=== PATIENT | male | born 1960 | race Caucasian/White ===

== ENCOUNTER 2019-11-14 11:56 | Outpatient (CLI) | payer MEDICARE, MEDICAID, SELFPAY ==
--- NOTE | 2019-11-14 | XR_ITS ---
WS: [id number] LUMBAR SPINE: 5 VIEWS TECHNIQUE: AP, lateral, and L5-S1 spot. Lateral views in neutral, flexion and extension. HISTORY: SCIATICA RIGHT SIDE COMPARISON: 03/03/2015 Very mild LEFT convex curvature of the lumbar spine is similar to the prior study. Straightening of t he normal lumbar lordosis. L4 retrolisthesis by 2.8 mm without instability. Mild disc space narrowing at L5-S1. Additional disc space narrowing and desiccation at T11-12. SI joints are symmetric bilaterally. No soft tissue abnormalities. XR/XR lumbar spine min 4V [id number] IMPRESSION: 1. Minimal degenerative LEFT convex curvature of the lumbar spine and straight ening of the normal lordosis. 2. Minimal retrolisthesis of L4 with no instability. 3. Mild degenerative disc disease at T11-12 and L5-S1.
== END 2019-11-14 11:57 | disposition home or self-care (01) ==
LOC: RADOUTREAD 12:17
PROVIDERS: Family Provider Family Medicine; PCP Family Medicine; Visit Provider Family Medicine
DX: Z01.89 Encounter for other specified special examinations (principal)

== ENCOUNTER 2019-12-03 09:05 | Outpatient (CLI) | payer MEDICARE, MEDICAID, SELFPAY ==
--- NOTE | 2019-12-03 09:14 | MR_ITS ---
WS: [id number] MRI LUMBAR SPINE NONCONTRAST TECHNIQUE: Sagittal T1, T2 and STIR imaging. Axial T1 and T2 imaging. CLINICAL INFORMATION: R SIDE SCIATICA COMPARISON: None. FINDINGS: Mild lumbar curve. No acute compression. Disc bulging with central protrusions worse at L1-2, L2-3, a nd L5-S1. Endplate Schmorl's nodes L3-4. No acute appearing compression fractures. L1-L2: Central disc osteophyte disc herniation with impingement subarticular recess bilaterally and m ild central canal stenosis. Mild facet arthropathy. Mild left and no significant right foraminal narr owing. L2-L3: Tiny shallow central disc protrusion with slight effacement of ventral thecal sac. Spinal diana l and foramen are patent. Mild facet arthropathy. L3-L4: Mild annular bulging with slight effacement of ventral thecal sac. Mild to moderate facet arth ropathy. Spinal canal and foramen are patent. L4-L5: Mild annular bulging with slight effacement of ventral thecal sac and narrowing of the subarti cular recess bilaterally. Moderate facet arthropathy. Spinal canal and foramen are patent. L5-S1: Small shallow central protrusion with slight effacement of ventral thecal sac. Moderate facet arthropathy. Moderate right and mild left foraminal narrowing. Contact of the exiting right L5 nerve root. Mild central canal stenosis in the cervical spine on the education teacher imaging at C3-C4. This can be further evaluated with cervical spine MRI. A few shallow protrusions in the thoracic spine seen on the education teacher imaging. MR/MR lumbar spine wo con* [id number] IMPRESSION: 1. Mild lumbar curve. No acute compression. 2. Central disc osteophyte disc herniation L1-2 with mild central canal stenos is and narrowing of the subarticular recess bilaterally. Mild left foraminal na rrowing at this level. 3. Right eccentric disc osteophyte complex L5-S1 with contact of the exiting r ight L5 nerve root and moderate right foraminal narrowing. Recommend correlatio n for right L5 nerve root symptoms. Moderate facet arthropathy this level. 4. Tiny central protrusions L2-3 and L3-4 without significant spinal canal sal rowing. 5. Mild central canal stenosis in cervical spine seen on the education teacher imaging at C3-C4. This can be further evaluated with cervical spine MRI.
== END 2019-12-03 09:06 | disposition home or self-care (01) ==
LOC: RADWPI 09:13
PROVIDERS: Family Provider Family Medicine; PCP Family Medicine; Visit Provider Family Medicine
DX: M54.31 Sciatica, right side (principal); M51.26 Other intervertebral disc displacement, lumbar region; M25.78 Osteophyte, vertebrae
CPT/HCPCS: 72148

== ENCOUNTER 2019-12-18 10:36 | Outpatient (CLI) | payer MEDICARE, MEDICAID, SELFPAY ==
--- NOTE | 2019-12-18 10:50 | MR_ITS ---
WS: [id number] MRI CERVICAL SPINE NONCONTRAST TECHNIQUE: Sagittal T1, T2 and STIR imaging. Axial T2, gradient, and fiesta imaging. CLINICAL INFORMATION: CENTRAL STENOSIS OF SPINAL CANAL COMPARISON: None. FINDINGS: Straightening of the normal cervical lordosis. Small amount of T2 signal abnormality in the cervical cord at C3-C4 with moderate central canal stenosis. C2-C3: Disc osteophyte complex with endplate ridging. Mild bilateral foraminal narrowing. Spinal diana l is patent. C3-C4: Disc osteophyte complex with indentation on the cervical cord. Moderate central canal stenosis . Severe right and moderate left bony foraminal narrowing. Mild facet arthropathy. C4-C5: Mild disc osteophyte complex with endplate ridging. Mild central canal stenosis. Severe right and moderate left bony foraminal narrowing. Advanced right facet arthropathy. C5-C6: Disc osteophyte complex with endplate ridging. Mild central canal stenosis. Moderate left and mild right bony foraminal narrowing. Mild facet arthropathy. C6-C7: Disc osteophyte complex with endplate ridging. Mild right greater than left bony foraminal sal rowing. Spinal canal is patent. C7-T1: Mild disc bulging and osteophytic ridging. Mild left and no significant right foraminal narrow ing. Spinal canal is patent.. Visualized brain stem structures: Normal. Prevertebral soft tissues: Normal. MR/MR cervical spin wo con* [id number] IMPRESSION: 1. Straightening of the normal cervical lordosis. 2. Disc osteophyte complex C3-C4 with moderate central canal stenosis and slig ht indentation on cervical cord. Small amount of chronic appearing signal abnor mality in the cord at this level. 3. Mild central canal stenosis C4-C5 and C5-C6. 4. Multilevel bony foraminal narrowing severe at right C3-C4 and right C4-C5, 5. Moderate to severe asymmetric facet arthropathy right C4-C5.
== END 2019-12-18 10:37 | disposition home or self-care (01) ==
LOC: RADWPI 10:40
PROVIDERS: Family Provider Family Medicine; PCP Family Medicine; Visit Provider Family Medicine
DX: M48.02 Spinal stenosis, cervical region (principal); M25.78 Osteophyte, vertebrae; M47.812 Spondylosis without myelopathy or radiculopathy, cervical region
CPT/HCPCS: 72141

== ENCOUNTER 2020-01-15 14:06 | Outpatient (CLI) | payer MEDICARE, MEDICAID, SELFPAY ==
--- NOTE | 2020-01-15 14:30 | CT_ITS ---
WS: [id number] CT CERVICAL SPINE TECHNIQUE: Noncontrast CT of the cervical spine with coronal and sagittal reformatted images. CLINICAL INFORMATION: Neck pain COMPARISON: MRI December 18, 2019 DLP: 1802.[address] scans at [facility] use at least one of these dose optimization techniques: automat ed exposure control; mA and/or kV adjustment per patient size (includes targeted exams where dose is matched to clinical indication); or iterative reconstruction. FINDINGS: Straightening of the normal cervical lordosis. Moderate spondylitic changes. Alignment is unchanged s freddy the prior MRI. C2-C3: Disc osteophyte complex with endplate ridging. Mild to moderate left foraminal narrowing C3-C4: Disc osteophyte complex with indentation on the cervical cord. Moderate central canal stenosis . Severe right and moderate left bony foraminal narrowing. Moderate to advanced right facet arthropat hy. C4-C5: Mild disc osteophyte complex with endplate ridging. Mild central canal stenosis. Severe ri ght and mild to moderate left bony foraminal narrowing. Advanced right facet arthropathy. C5-C6: Disc osteophyte complex with endplate ridging. Mild central canal stenosis. Moderate left and mild right bony foraminal narrowing. Moderate left facet arthropathy. C6-C7: Disc osteophyte complex with endplate ridging. Mild right greater than left bony foraminal sal rowing. Spinal canal is patent. C7-T1: Mild disc bulging and osteophytic ridging. Foramen are patent. Spinal canal is patent. CT/CT cervical spin wo con* [id number] IMPRESSION: 1. Moderate spondylitic changes with straightening of the normal cervical lord osis. 2. Disc osteophyte complex C3-C4 with moderate central canal stenosis and inde ntation right ventral cervical cord. This appears unchanged from the prior MRI. 3. Mild central canal stenosis C4-C5 and C5-C6 due to disc osteophyte complexe s. 4. Multilevel bony foraminal narrowing more severe at right C3-C4, right C4-C5 , and left C5-C6. 5. Asymmetric advanced facet arthropathy right C3-C4 and C4-C5, worse at right C4-C5.
--- NOTE | 2020-01-15 14:45 | XR_ITS ---
WS: [id number] CERVICAL SPINE FLEXION EXTENSION TECHNIQUE: 3 views of the cervical spine: lateral neutral, flexion and extension views. CLINICAL INFORMATION: Neck pain COMPARISON: None. FINDINGS: Mild spondylitic changes. Slight anterolisthesis C4 on C5, C5 on C6 and C6 on C7 in neutral position measuring 2 to 3 mm. No instability on flexion-extension. Posterior elements are normal. No other significant findings. XR/XR cervical spine fl/ex [id number] IMPRESSION: No instability on flexion-extension.
== END 2020-01-15 14:07 | disposition home or self-care (01) ==
LOC: RADWPI 14:09
PROVIDERS: Family Provider Family Medicine; PCP Family Medicine; Visit Provider Licensed Practical Nurse
DX: M54.2 Cervicalgia (principal); M47.892 Other spondylosis, cervical region; M25.78 Osteophyte, vertebrae; M48.02 Spinal stenosis, cervical region; M47.812 Spondylosis without myelopathy or radiculopathy, cervical region
CPT/HCPCS: 72040; 72125

== ENCOUNTER → 2020-01-20 14:04 | Outpatient (BNVA) | payer MEDICARE, MEDICAID, SELFPAY | PROVIDERS: Family Provider Family Medicine; PCP Family Medicine; Visit Provider Specialist | DX: G56.23 Lesion of ulnar nerve, bilateral upper limbs (principal); F17.210 Nicotine dependence, cigarettes, uncomplicated | CPT/HCPCS: 95910 ==

== ENCOUNTER → 2020-02-04 14:03 | Outpatient (BNVA) | payer MEDICARE, MEDICAID, SELFPAY | PROVIDERS: Family Provider Family Medicine; PCP Family Medicine; Referring Provider Licensed Practical Nurse; Visit Provider Anesthesiology Pain Medicine | DX: M51.17 Intervertebral disc disorders with radiculopathy, lumbosacral region (principal); M48.02 Spinal stenosis, cervical region; G56.23 Lesion of ulnar nerve, bilateral upper limbs; G99.2 Myelopathy in diseases classified elsewhere; F17.210 Nicotine dependence, cigarettes, uncomplicated | CPT/HCPCS: 99204; 99205 ==

== ENCOUNTER → 2020-02-12 13:10 | Outpatient (BNVA) | payer MEDICARE, MEDICAID, SELFPAY | PROVIDERS: Family Provider Family Medicine; PCP Family Medicine; Visit Provider Anesthesiology Pain Medicine | DX: M47.816 Spondylosis without myelopathy or radiculopathy, lumbar region (principal); M48.062 Spinal stenosis, lumbar region with neurogenic claudication; F17.210 Nicotine dependence, cigarettes, uncomplicated; Z79.891 Long term (current) use of opiate analgesic | CPT/HCPCS: 64493; 64494; 64495; J2001; J3490 ==

== ENCOUNTER 2020-02-20 09:38 | Outpatient (RCR) | payer MEDICARE, MEDICAID, SELFPAY | END 2020-03-03 23:59 | disposition home or self-care (01) | LOC: SPT 09:38 | PROVIDERS: PCP Family Medicine; Referring Provider Licensed Practical Nurse; Visit Provider Licensed Practical Nurse | DX: M48.062 Spinal stenosis, lumbar region with neurogenic claudication (principal); M51.17 Intervertebral disc disorders with radiculopathy, lumbosacral region | CPT/HCPCS: 97110; 97161 ==

== ENCOUNTER 2020-11-18 10:02 | Outpatient (CLI) | payer MEDICARE, MEDICAID, SELFPAY ==
--- NOTE | 2020-11-18 10:13 | CT_ITS ---
WS: [id number] LDCT LUNG CANCER SCREENING TECHNIQUE: Noncontrast CT of the chest with coronal and sagittal reformatted images. CLINICAL INFORMATION: NICOTINE DEPENDENCE,CIGARETTES COMPARISON: None. DLP: 62.5 mGy.cm DIvol: 1.[address] scans at [facility] use at least one of these dose optimization techniques: automat ed exposure control; mA and/or kV adjustment per patient size (includes targeted exams where dose is matched to clinical indication); or iterative reconstruction. FINDINGS: 3 mm noncalcified nodule in the right upper lobe anteriorly. No other suspicious pulmonary opacities. No mediastinal or hilar lymphadenopathy. No axillary lymphadenopathy. Adrenal glands are normal. Norm al GE junction. No acute pulmonary infiltrates. No pleural fluid. CT/CT lung screening [id number] IMPRESSION: LUNG-RADS: 2-Benign Appearance or Behavior FOLLOW UP: 12 Month: Continue annual screening with LDCT
== END 2020-11-18 10:03 | disposition home or self-care (01) ==
LOC: RAD 10:08
PROVIDERS: PCP Family Medicine; Visit Provider Family Medicine
DX: Z12.2 Encounter for screening for malignant neoplasm of respiratory organs (principal); F17.210 Nicotine dependence, cigarettes, uncomplicated; R91.1 Solitary pulmonary nodule
CPT/HCPCS: 71271

== ENCOUNTER 2021-07-15 14:33 | Outpatient (CLI) | payer MEDICARE, MEDICAID, SELFPAY ==
[2021-07-15 14:40] VITALS: BP 167/80; PULSE 53; RESP 18; TEMP 36.3; O2SAT 97; BMI 30.9
[2021-07-15 15:13] VITALS: BP 127/75; PULSE 80; RESP 18; TEMP 36.3; O2SAT 97
[2021-07-15 16:08] VITALS: BP 136/79; PULSE 64; RESP 18; TEMP 36.3; O2SAT 95
== END 2021-07-15 14:34 | disposition home or self-care (01) ==
LOC: OPS 14:35
PROVIDERS: PCP Family Medicine; Visit Provider Family Medicine
DX: U07.1 COVID-19 (principal)
CPT/HCPCS: 96365

== ENCOUNTER 2021-12-17 10:16 | Outpatient (CLI) | payer MEDICARE, MEDICAID, SELFPAY ==
--- NOTE | 2021-12-17 10:30 | CT_ITS ---
WS: [id number] LDCT LUNG CANCER SCREENING TECHNIQUE: Noncontrast CT of the chest with coronal and sagittal reformatted images. CLINICAL INFORMATION: HX OF TOBACCO USE COMPARISON: November 18, 2020 DLP: 86.69 mGy.cm DIvol: Mean CTDIvol: 1.60 (mGy) All CT scans at [facility] use at least one of these dose optimization techniques: automat ed exposure control; mA and/or kV adjustment per patient size (includes targeted exams where dose is matched to clinical indication); or iterative reconstruction. FINDINGS: Stable 3 mm noncalcified nodule RIGHT upper lobe anteriorly. Small nodule LEFT lower lobe superior se gment near the fissure measuring 5 mm is better seen today and is stable. No other suspicious pulmona ry opacities. No acute pulmonary infiltrates. Normal caliber thoracic aorta. No mediastinal or hilar lymphadenopathy. No axillary lymphadenopathy. Mild coronary calcification. Adrenal glands are normal. Normal GE junction. Mild thoracic curve. Mild spondylitic changes thoracic spine. CT/CT lung screening [id number] IMPRESSION: LUNG-RADS: 2-Benign Appearance or Behavior FOLLOW UP: 12 Month: Continue annual screening with LDCT
== END 2021-12-17 10:17 | disposition home or self-care (01) ==
LOC: RAD 10:23
PROVIDERS: PCP Family Medicine; Visit Provider Family Medicine
DX: Z13.83 Encounter for screening for respiratory disorder NEC (principal); F17.200 Nicotine dependence, unspecified, uncomplicated
CPT/HCPCS: 71271

== ENCOUNTER 2023-01-03 09:28 | Outpatient (CLI) | payer OTHER, MEDICAID, SELFPAY ==
--- NOTE | 2023-01-03 09:36 | CT_ITS ---
WS: [id number] LDCT LUNG CANCER SCREENING HISTORY: NICOTINE dependence, CIGARETTES TECHNIQUE: Axial imaging performed from the apices to 1 cm below the costophrenic angles. Coronal and sagittal reformats are submitted with axial MIP series. All CT scans at use at least one of these dose optimization techniques: automated exposure control; mA and/or kV adjustment per patient size (includes targeted exams where dose is matched to clinical indication); or iterativ e reconstruction. DLP: 91.59 mGy.cm DIvol: Mean CTDIvol: 2.00 (mGy) COMPARISON: 12/17/2021, 11/18/2020 Diagnostic quality: Satisfactory Lungs: Paraseptal emphysema. No change in the 5 mm nodule anterior RIGHT upper lobe. Superior segment LEFT lower lobe 5 mm nodule reidentified. No increase in size. No new nodules are identified. No pul monary mass or endobronchial lesion. Heart: Normal size heart with no pericardial effusion.. Other findings: Very mild atherosclerosis aorta. No mediastinal or hilar adenopathy. No adrenal mass. Mild thoracic spondylosis. CT/CT lung screening [id number] IMPRESSION: LUNG-RADS: 2-Benign Appearance or Behavior FOLLOW UP: 12 Month: Continue annual screening with LDCT OTHER FINDINGS (S MODIFIER): None.
== END 2023-01-03 09:29 | disposition home or self-care (01) ==
LOC: RAD 09:30
PROVIDERS: PCP Family Medicine; Visit Provider Family Medicine
DX: Z12.2 Encounter for screening for malignant neoplasm of respiratory organs (principal); F17.210 Nicotine dependence, cigarettes, uncomplicated
CPT/HCPCS: 71271

== ENCOUNTER 2024-05-07 09:59 | Outpatient (CLI) | payer MEDICAID, MEDICARE, SELFPAY ==
--- NOTE | 2024-05-07 10:07 | CT_ITS ---
WS: [id number] LDCT LUNG CANCER SCREENING TECHNIQUE: Noncontrast CT of the chest with coronal and sagittal reformatted images. CLINICAL INFORMATION: NICOTINE DEPENDENCE,CIGARETTES COMPARISON: CT 01/03/2023 DLP: 85.61 mGy.cm DIvol: Mean CTDIvol: 1.80 (mGy) All CT scans at [facility] use at least one of these dose optimization techniques: automat ed exposure control; mA and/or kV adjustment per patient size (includes targeted exams where dose is matched to clinical indication); or iterative reconstruction. FINDINGS: Chronic paraseptal emphysematous changes. Stable 5 mm nodule anterior RIGHT upper lobe. Additional 5 mm nodule superior segment LEFT lower lobe has resolved. No new suspicious pulmonary parenchymal opac ities. Normal caliber thoracic aorta. No mediastinal or hilar lymphadenopathy. No axillary lymphadenopathy. Adrenal glands are normal. Normal GE junction. Mild thoracic curve with mild spondylitic changes. Mil d thoracic kyphosis. CT/CT lung screening [id number] IMPRESSION: LUNG-RADS: 2-Benign Appearance or Behavior FOLLOW UP: 12 Month: Continue annual screening with LDCT
== END 2024-05-07 10:00 | disposition home or self-care (01) ==
PROVIDERS: PCP Family Medicine; Visit Provider Family Medicine
DX: Z12.2 Encounter for screening for malignant neoplasm of respiratory organs (principal); F17.210 Nicotine dependence, cigarettes, uncomplicated; J43.8 Other emphysema; R91.1 Solitary pulmonary nodule
CPT/HCPCS: 71271

== ENCOUNTER 2025-06-26 14:43 | Outpatient (CLI) | payer MEDICARE, MEDICAID, SELFPAY ==
--- NOTE | 2025-06-26 14:50 | CT_ITS ---
WS: [id number] LDCT LUNG CANCER SCREENING TECHNIQUE: Noncontrast CT of the chest with coronal and sagittal reformatted images. CLINICAL INFORMATION: NICOTINE DEPENDENCE,CIGARETTES COMPARISON: CT 05/07/2024 DLP: 69.72 mGy.cm DIvol: Mean CTDIvol: 1.30 (mGy) All CT scans at [facility] use at least one of these dose optimization techniques: automated exposure control; mA and/or kV adjustment per patient size (includes targeted exams where dose is matched to clinical indication); or iterative reconstruction. FINDINGS: Chronic paraseptal emphysematous changes. Stable 5 mm nodule anterior RIGHT upper lobe. No new suspicious pulmonary parenchymal opacities. Normal caliber thoracic aorta. No mediastinal or hilar lymphadenopathy. No axillary lymphadenopathy. Adrenal glands are normal. Normal GE junction. Mild thoracic curve with mild spondylitic changes. Mild thoracic kyphosis. CT/CT lung screening [id number] IMPRESSION: LUNG-RADS: 2-Benign Appearance or Behavior FOLLOW UP: 12 Month: Continue annual screening with LDCT
== END 2025-06-26 14:44 | disposition home or self-care (01) ==
PROVIDERS: PCP Family Medicine; Visit Provider Family Medicine
DX: Z12.2 Encounter for screening for malignant neoplasm of respiratory organs (principal); Z87.891 Personal history of nicotine dependence; J43.8 Other emphysema; R91.1 Solitary pulmonary nodule; M40.294 Other kyphosis, thoracic region; M47.814 Spondylosis without myelopathy or radiculopathy, thoracic region
CPT/HCPCS: 71271